=== PATIENT | female | born 1985 | race Caucasian/White ===

== ENCOUNTER 2017-09-24 20:54 | Emergency (ER) | payer OTHER ==
[2017-09-24 21:03] VITALS: BP 109/68; PULSE 99; RESP 16; TEMP 98.3; O2SAT 99
--- NOTE | 2017-09-24 22:06 | PD ---
HPI Chief Complaint: Related Problem Time Seen by Provider: 21:50 Travel History International Travel<30 days: No Contact w/Intl Traveler<30days: No Traveled to known affect area: No History of Present Illness HPI 32-year-old white female 5 para 4. Last menstrual period was August 15. She presents to the ER for evaluation of her . She went to [facility] [place] as well as today. She had initial blood work done including ultrasound. She had a repeated today. She reports that her quantitative hCG was low and had continued to go down on her second visit. She comes in for a second opinion. She had noticed some vaginal spotting yesterday which has persisted. She denies any significant bleeding. No passing of clots or tissue. No nausea vomiting. No abdominal pain or pelvic pain. Symptoms are mild. No alleviating factors. PFSH Past Medical History Medical History: Denies Significant Hx Tetanus Vaccination: < 5 Years ?: : 5 Para: 4 Past Surgical History Surgical History: No Previous Surgery Social History Alcohol Use: Yes Tobacco Use: Yes Substance Use: No Allergies-Medications (Allergen,Severity, Reaction): Coded Allergies: nickel (Verified Allergy, Unknown, 09/24/17) Review of Systems General / Constitutional: No: Fever Eyes: No: Visual changes HENT: No: Headaches Cardiovascular: No: Chest Pain or Discomfort Respiratory: No: Shortness of Breath Gastrointestinal: No: Abdominal Pain Genitourinary: Positive: Vaginal Bleeding, No: Frequency, Dysuria, Hematuria, Pelvic Pain, Discharge, Dysmenorrhea Musculoskeletal: No: Pain Skin: No Rash Neurologic: No: Weakness Psychiatric: No: Depression Endocrine: No: Polydipsia Hematologic/Lymphatic: No: Easy Bruising Physical Exam Narrative GENERAL: Well-developed, well-nourished in no acute distress. Nontoxic appearing. HEAD: Normocephalic, atraumatic. EYES: Pupils equal round and reactive. Extraocular motions intact. No scleral icterus. No injection or drainage. ENT: TMs clear without erythema. The external auditory canals clear. Nose: clear . Posterior pharynx is pink and moist. No tonsillar edema or exudate. Uvula midline. Airway patent. NECK: Trachea midline.Supple, nontender, moves head freely. No central bony tenderness or spasm. CARDIOVASCULAR: Regular rate and rhythm without murmurs, gallops, or rubs. RESPIRATORY: Clear to auscultation. Breath sounds equal bilaterally. No wheezes , rales, or rhonchi. GASTROINTESTINAL: Abdomen soft, non-tender, nondistended. No hepato-splenomegaly , or palpable masses. No guarding. EXTREMITIES: No clubbing, cyanosis, or edema. No joint tenderness, effusion, or edema noted. BACK: Nontender without deformity or crepitance. No flank tenderness. Data Data Last Documented VS Vital Signs Date Time Temp Pulse Resp B/P (MAP) Pulse Ox O2 Delivery O2 Flow Rate FiO2 09/24/17 21:03 98.3 99 16 109/68 (82) 99 Orders Orders Ed Discharge Order (09/24/17 23:18) MDM Medical Decision Making Medical Screen Exam Complete: Yes Emergency Medical Condition: Yes Medical Record Reviewed: Yes Differential Diagnosis Differential diagnosis: , threatened AB, incomplete AB, ectopic Narrative Course We will obtain the medical records as well as laboratory testing and ultrasounds from [facility]. I reviewed the medical records from [facility]. The patient's initial hCG was approximately 100. Her repeat hCG 3 days later was only 161. She had an ultrasound done initially showed a 2 mm sac in the endometrium which is no longer present. They cannot completely exclude an ectopic although the patient does not have any pain. I suspect the patient has gone on to have a miscarriage. I do not find any physical findings consistent with an ectopic . She is not having any pain. She states that her bleeding is actually somewhat improved from the initial. The patient has been made aware of the laboratory findings as well as ultrasound findings. She is also aware that we cannot completely rule out an ectopic although I suspect that this is a miscarriage. She is instructed to follow-up with gynecology to have a repeat hCG and ultrasound done in 1 week. She is instructed to return to the ER if she has increasing abdominal pain or any problems. Patient verbally states understanding. Significant other at bedside as well. Diagnosis Primary Impression: Miscarriage Referrals: Dipika Wright MD 1 week Patient Instructions: General Instructions Additional Instructions: Increase fluids. Pelvic rest. Follow-up with milking machine technician in 3-7 days for repeat quantitative hCG and possible ultrasound. Return to the ER if you develop increasing pain, significant bleeding. Or problems rest Disposition: 01 DISCHARGE HOME Condition: Stable Abhi Richter Sep 24, 2017 22:06
== END 2017-09-24 23:55 | disposition home or self-care (01) ==
LOC: NEPD 20:54
DX: O03.9 Complete or unspecified spontaneous abortion without complication (principal); Z72.0 Tobacco use
CPT/HCPCS: 99281